=== PATIENT | male | born 1950 | race Caucasian/White ===

== ENCOUNTER 2018-09-11 13:55 | Emergency (ER) | payer MEDICARE, OTHER ==
[~2018-09-11] VITALS: Ht 175.3 cm; Wt 80.7 kg
[~2018-09-11 13:55] MED LIST: CRESTOR20 MG PO; DIOVAN80 MG PO; DOCUSATE SODIU100 MG PO; HYZAAR 100-251 EACH PO; KEFLEX250 MG PO; LEVAQUIN500 MG PO; LISINOPRIL20 MG PO; NAPROXEN500 M1 PO; NEXIUM40 MG PO; PAROXETINE HCL10 MG PO; PROAIR HFA INH8.5 GM; PROTONIX40 MG/ML PO; SUMATRIPTAN SU100 MG PO; TESSALON PERLE100 MG PO; VITAMIN D-32000 UNIT PO
--- OUTSIDE RECORDS SUMMARY | 2018-09-11 13:57 | XMS REPORT ---
Author Author [facility] Address Unknown Phone Unavailable Care Team Providers Care P 3 [employer] I[employer] Technician Name Role Phone Unavailable Unavailable Payers Payer Name Policy Type Policy Number Effective Date Expiration Date Problems This patient has no known problems. Allergies, Adverse Reactions, Alerts Allergy Name Allergy Type Status Severity Reaction(s) Onset Date Inactive Date Treating Clinician Comments No Known Drug Intolerances DA Active U 2009-10-16 00:00:00 Medications This patient has no known medications.
--- NOTE | 2018-09-11 15:05 | NUR ---
TOTAL OUTPUT FROM [facility] 900CC CLEAR YELLOW URINE- PT REPORTS RELIEF FROM SYMPTOMS
[2018-09-11 15:27] LABS: CLARITY,URINE CLEAR (CLEAR); COLOR,URINE YELLOW (YELLOW)
[2018-09-11 15:28] LABS: BILIRUBIN,URINE NEGATIVE (NEGATIVE); KETONES,URINE NEGATIVE (NEGATIVE); LEUKOCYTE ESTERASE ,URINE NEGATIVE (NEGATIVE); NITRITE,URINE NEGATIVE (NEGATIVE); PROTEIN,URINE DIPSTICK NEGATIVE (NEGATIVE); URINE UROBILINOGEN 0.2 mg/dL (0.2 - 1)
[2018-09-11 15:42] LABS: BACTERIA,URINE RARE /HPF; EPITHELIAL CELLS,URINE RARE /LPF; RBC,URINE 0-5 /HPF (0-5); WBC,URINE (MAN) 0-5 /HPF (0-5)
[2018-09-11 17:18] VITALS: BP 167/64
== END 2018-09-11 16:35 | disposition home or self-care (01) ==
LOC: ER 13:55
DX: R33.9 Retention of urine, unspecified (principal); N40.1 Benign prostatic hyperplasia with lower urinary tract symptoms; I10 Essential (primary) hypertension; E78.00 Pure hypercholesterolemia, unspecified; J44.9 Chronic obstructive pulmonary disease, unspecified; Z87.891 Personal history of nicotine dependence
CPT/HCPCS: 51700; 81001; 87086; 99283

== ENCOUNTER 2018-09-13 12:14 | Emergency (ER) | payer MEDICARE, OTHER ==
[~2018-09-13] VITALS: Ht 175.3 cm; Wt 80.7 kg
[2018-09-13 13:05] VITALS: BP 141/77
== END 2018-09-13 13:06 | disposition home or self-care (01) ==
LOC: ER 12:14
DX: Z46.6 Encounter for fitting and adjustment of urinary device (principal); R33.9 Retention of urine, unspecified; I10 Essential (primary) hypertension; J44.9 Chronic obstructive pulmonary disease, unspecified; E78.5 Hyperlipidemia, unspecified; J45.909 Unspecified asthma, uncomplicated; K21.9 Gastro-esophageal reflux disease without esophagitis; F32.9 Major depressive disorder, single episode, unspecified
CPT/HCPCS: 99282

== ENCOUNTER 2020-07-30 16:24 | Emergency (ER) | payer MEDICARE, OTHER ==
[~2020-07-30] VITALS: Ht 175.3 cm; Wt 69.4 kg
[2020-07-30] MEDS ORDERED: SODIUM CHLORIDE 0.9% 1000ML 1,000 ML IV STA ×2 (16:40→17:43)
[2020-07-30] MEDS ORDERED: PANTOPRAZOLE 40 MG 10ML VIAL IV NR (16:45)
[2020-07-30] MEDS ORDERED: ATORVASTATIN CA20 MG PO (16:49)
[2020-07-30] MEDS ORDERED: OMEPRAZOLE40 MG (16:49)
[2020-07-30] MEDS ORDERED: BENICAR20 MG PO (16:50)
[2020-07-30 17:02] LABS: BASOPHILS % 0.2 % (0.0-1.0); EOSINOPHILS # (AUTO) 0.1 (0.0-0.4); EOSINOPHILS % 0.3 % (0.0-6.0); HEMATOCRIT 36.4 % (38.2-49.6); HEMOGLOBIN 12.1 g/dL (14.0-18.0); LYMPHOCYTES # (AUTO) 1.2 (1.0-3.2); LYMPHOCYTES % 6.3 % (18.0-39.1); MEAN CORPUSCULAR HGB CONC 33.2 g/dL (31-35); MEAN CORPUSCULAR VOLUME 93.3 fL (81-99); MONOCYTES # (AUTO) 1.9 (0.2-0.8); MONOCYTES % 9.7 % (4.4-11.3); NEUTROPHILS # (AUTO) 16.1 (2.1-6.9); NEUTROPHILS % 81.9 % (38.7-80.0); PLATELET COUNT 383 x10e3/uL (140-360); RED CELL DISTRIBUTION WIDTH 13.3 % (11.7-14.4)
[2020-07-30] MEDS ORDERED: LIDOCAINE JELLY 2% 10ML URO-JET ONE (17:29)
[2020-07-30] MEDS ORDERED: LIDOCAINE JELLY 2% 10ML URO-JET TOP ONE (17:30)
[2020-07-30 17:33] LABS: INR 0.95; PROTHROMBIN TIME 13.2 seconds (11.9-14.5)
[2020-07-30 17:40] LABS: ALBUMIN 2.9 g/dL (3.5-5.0); ALBUMIN/GLOBULIN RATIO 0.9 (0.8-2.0); ANION GAP 18.8 mmol/L (8-16); CALCIUM 8.3 mg/dL (8.4-10.2); CREATININE, SERUM 1.35 mg/dL (0.72-1.25); MAGNESIUM 1.9 MG/DL (1.3-2.1); POTASSIUM 3.8 mmol/L (3.5-5.1)
[2020-07-30] MEDS ORDERED: PIPERACILLIN/TAZO 4.5 GM 100 ML IV ONE (17:45)
[2020-07-30 17:47] LABS: CREATINE KINASE MB 0.8 ng/mL (0-5.0)
[2020-07-30 17:54] LABS: B-TYPE NATRIURETIC PEPTIDE2 < 10.0 pg/mL (0-100)
[2020-07-30 18:04] LABS: PARTIAL THROMBOPLASTIN TIME 26.5 seconds (23.8-35.5)
[2020-07-30] MEDS ORDERED: SODIUM CHLORIDE 0.9% 50ML 50 ML ONE (18:55)
[2020-07-30] MEDS ORDERED: IOPAMIDOL 370 MG/ML 200 ML INFUS..BTL INJ ONE (18:56)
[2020-07-30 19:08] LABS: CLARITY,URINE CLOUDY (CLEAR); COLOR,URINE AMBER (YELLOW); KETONES,URINE 1+ (NEGATIVE); LEUKOCYTE ESTERASE ,URINE NEGATIVE (NEGATIVE); NITRITE,URINE NEGATIVE (NEGATIVE); PROTEIN,URINE DIPSTICK 2+ (NEGATIVE)
[2020-07-30 19:09] LABS: BILIRUBIN,URINE MODERATE (NEGATIVE); URINE UROBILINOGEN 1 mg/dL (0.2 - 1)
[2020-07-30 19:48] LABS: BACTERIA,URINE MANY /HPF; EPITHELIAL CELLS,URINE FEW /LPF; MUCUS,URINE MODERATE (RARE)
[2020-07-30] MEDS ORDERED: SODIUM CHLORIDE 0.9% 1000ML 1,000 ML IV SCH (21:45)
== END 2020-07-30 22:15 | disposition other institution (70) ==
LOC: ER 17:03
DX: U07.1 COVID-19 (principal); R65.20 Severe sepsis without septic shock; J18.9 Pneumonia, unspecified organism; N39.0 Urinary tract infection, site not specified; E11.65 Type 2 diabetes mellitus with hyperglycemia; I10 Essential (primary) hypertension; E78.5 Hyperlipidemia, unspecified; R94.31 Abnormal electrocardiogram [ECG] [EKG]
CPT/HCPCS: 36415; 51700; 71045; 74177; 80053; 81001; 82550; 82553; 82948; 83605; 83690; 83735; 83880; 84484; 85025; 85610; 85730; 87040; 87086; 87400; 93005; 99284; C9113; J2543; J7030; Q9967; U0002

== ENCOUNTER 2021-02-23 08:54 | Outpatient (RCR) | payer MEDICARE ==
[~2021-02-23 08:54] MED LIST changes: +ATORVASTATIN CA20 MG PO; +BENICAR20 MG PO; +OMEPRAZOLE40 MG
== END 2021-02-26 ==
LOC: PT 08:54
PROVIDERS: ATTEND Physician Assistant

== ENCOUNTER 2021-02-27 07:30 | Emergency (ER) | payer MEDICARE ==
[~2021-02-27] VITALS: Ht 175.3 cm; Wt 81.6 kg
[2021-02-27 08:00] LABS: CLARITY,URINE CLEAR (CLEAR); COLOR,URINE YELLOW (YELLOW); KETONES,URINE NEGATIVE (NEGATIVE); LEUKOCYTE ESTERASE ,URINE NEGATIVE (NEGATIVE); NITRITE,URINE NEGATIVE (NEGATIVE); PROTEIN,URINE DIPSTICK NEGATIVE (NEGATIVE); URINE UROBILINOGEN 0.2 mg/dL (0.2 - 1)
[2021-02-27 08:14] LABS: BACTERIA,URINE RARE /HPF; EPITHELIAL CELLS,URINE RARE /LPF; RBC,URINE 0-5 /HPF (0-5); WBC,URINE (MAN) 0-5 /HPF (0-5)
[2021-02-27 08:16] LABS: RENAL EPITHELIAL CELLS,URINE FEW
[2021-02-27 08:17] LABS: TRANSITIONAL EPI CELLS,URINE RARE
== END 2021-02-27 08:34 | disposition home or self-care (01) ==
LOC: ER 08:01
DX: R33.9 Retention of urine, unspecified (principal); I10 Essential (primary) hypertension; E11.9 Type 2 diabetes mellitus without complications; E78.5 Hyperlipidemia, unspecified; J44.9 Chronic obstructive pulmonary disease, unspecified; K21.9 Gastro-esophageal reflux disease without esophagitis; Z99.81 Dependence on supplemental oxygen
CPT/HCPCS: 51700; 81001; 87086; 99283

== ENCOUNTER 2021-05-31 13:57 | Emergency (ER) | payer MEDICARE ==
[~2021-05-31] VITALS: Ht 175.3 cm; Wt 81.6 kg
[2021-05-31] MEDS ORDERED: SODIUM CHLORIDE 0.9% 1000ML 1,000 ML IV STA (14:01)
[2021-05-31] MEDS ORDERED: FENTANYL CITRATE/PF 100MCG/2 ML INJ IV ONE (14:15)
[2021-05-31] MEDS ORDERED: ONDANSETRON HCL INJ 2MG/ML 2ML 2 MG/ML VIAL IV PRN (14:15)
[2021-05-31 14:24] LABS: BASOPHILS % 0.2 % (0.0-1.0); EOSINOPHILS # (AUTO) 0.1 (0.0-0.4); EOSINOPHILS % 1.2 % (0.0-6.0); HEMATOCRIT 39.2 % (38.2-49.6); LYMPHOCYTES # (AUTO) 1.9 (1.0-3.2); LYMPHOCYTES % 20.7 % (18.0-39.1); MEAN CORPUSCULAR HEMOGLOBIN 30.2 pg (28-32); MEAN CORPUSCULAR HGB CONC 33.2 g/dL (31-35); MEAN CORPUSCULAR VOLUME 91.2 fL (81-99); MONOCYTES # (AUTO) 1.5 (0.2-0.8); MONOCYTES % 16.1 % (4.4-11.3); NEUTROPHILS # (AUTO) 5.7 (2.1-6.9); NEUTROPHILS % 61.1 % (38.7-80.0); PLATELET COUNT 334 x10e3/uL (140-360); RED CELL DISTRIBUTION WIDTH 13.9 % (11.7-14.4)
[2021-05-31 14:30] LABS: CLARITY,URINE SL CLOUDY (CLEAR); COLOR,URINE AMBER (YELLOW); KETONES,URINE TRACE (NEGATIVE); LEUKOCYTE ESTERASE ,URINE NEGATIVE (NEGATIVE); NITRITE,URINE NEGATIVE (NEGATIVE); PROTEIN,URINE DIPSTICK 1+ (NEGATIVE); URINE UROBILINOGEN 0.2 mg/dL (0.2 - 1)
[2021-05-31 14:31] LABS: INR 1.04; PROTHROMBIN TIME 13.8 seconds (11.9-14.5)
[2021-05-31 14:41] LABS: ALBUMIN 3.8 g/dL (3.5-5.0); ALBUMIN/GLOBULIN RATIO 1.1 (0.8-2.0); ANION GAP 15.6 mmol/L (8-16); CALCIUM 8.5 mg/dL (8.4-10.2); CREATININE, SERUM 2.1 mg/dL (0.72-1.25); POTASSIUM 4.6 mmol/L (3.5-5.1)
[2021-05-31 14:42] LABS: AMORPHOUS SEDIMENT,URINE MODERATE (FEW); BACTERIA,URINE MODERATE /HPF; CALCIUM OXALATE CRYSTALS,UR MODERATE (FEW); EPITHELIAL CELLS,URINE FEW /LPF
== END 2021-05-31 17:16 | disposition home or self-care (01) ==
LOC: ER 14:02
DX: R10.11 Right upper quadrant pain (principal); R11.2 Nausea with vomiting, unspecified; R19.7 Diarrhea, unspecified; I10 Essential (primary) hypertension; J44.9 Chronic obstructive pulmonary disease, unspecified; E11.9 Type 2 diabetes mellitus without complications; K21.9 Gastro-esophageal reflux disease without esophagitis; E78.5 Hyperlipidemia, unspecified; I44.7 Left bundle-branch block, unspecified; N40.0 Benign prostatic hyperplasia without lower urinary tract symptoms; Z20.822 Contact with and (suspected) exposure to COVID-19; Z79.899 Other long term (current) drug therapy
CPT/HCPCS: 36415; 76705; 80053; 81001; 83605; 83690; 84484; 85025; 85610; 87040; 93005; 99283; J7030; U0002

== ENCOUNTER 2025-05-07 15:43 | Inpatient (IN) | payer MEDICARE ==
[2025-05-07] VITALS (10 sets, daily range): BP systolic 89–119; BP diastolic 37–51; PULSE 61–70; RESP 6–18; TEMP 97.7–97.9; O2SAT 95–99
[~2025-05-07] VITALS: Ht 175.3 cm; Wt 57.8 kg
[2025-05-07 17:12] LABS: BASOPHILS % 0.1 % (0.0-1.0); EOSINOPHILS % 0.5 % (0.0-6.0); LYMPHOCYTES % 7.5 % (18.0-39.1); MONOCYTES % 6.9 % (4.4-11.3); NEUTROPHILS % 84.0 % (38.7-80.0); RED CELL DISTRIBUTION WIDTH 19.5 % (11.7-14.4)
[2025-05-07 17:17] LABS: INR 1.34
[2025-05-07 17:27] LABS: EST GLOMERULAR FILTRATION RATE 75.0 ML/MIN (>=60)
[2025-05-07] MEDS ORDERED: IOPAMIDOL 370 MG/ML 100 ML INFUS..BTL INJ ONE (17:44)
[2025-05-07 17:54] LABS: LEUKOCYTE ESTERASE ,URINE TRACE (NEGATIVE); PROTEIN,URINE DIPSTICK 1+ (NEGATIVE); URINE UROBILINOGEN 0.2 mg/dL (0.2 - 1)
[2025-05-07 18:00] LABS: EPITHELIAL CELLS,URINE MODERATE /LPF
[2025-05-07] MEDS ORDERED: DIGOXIN INJ 0.25 MG/ML 2 ML AMP IV ONE (18:15)
[2025-05-07] MEDS: HYDROMORPHONE 1MG/1ML INJ IV STA (18:21)
[2025-05-07] MEDS: ONDANSETRON HCL INJ 2MG/ML 2ML 2 MG/ML VIAL IV STA (18:22)
[2025-05-07] MEDS: SODIUM CHLORIDE 0.9% 500ML 500 ML IV ONE (18:22)
[2025-05-07] MEDS ORDERED: PIPERACILLIN/TAZOBACTAM 3.375 GM VIAL ONE (18:46)
[2025-05-07] MEDS ORDERED: ONDANSETRON HCL INJ 2MG/ML 2ML 2 MG/ML VIAL IV PRN (19:30)
[2025-05-08] VITALS (41 sets, daily range): BP systolic 94–144; BP diastolic 37–66; PULSE 60–110; RESP 5–21; TEMP 96.8–99.8; O2SAT 94–100
[2025-05-08 00:52] LABS: % IRON SATURATION 18 % (15-50)
[2025-05-08] MEDS ORDERED: FEROSUL325 MG PO (06:33)
[2025-05-08] MEDS ORDERED: BENZONATATE100 MG PO (06:33)
[2025-05-08] MEDS ORDERED: CETIRIZINE HCL10 MG PO (06:33)
[2025-05-08] MEDS ORDERED: CLOPIDOGREL75 MG PO (06:33)
[2025-05-08] MEDS ORDERED: AMIODARONE HCL200 MG PO (06:33)
[2025-05-08] MEDS ORDERED: FOLIC ACID0.4 MG PO (06:33)
[2025-05-08] MEDS ORDERED: ELIQUIS5 MG PO (06:33)
[2025-05-08] MEDS ORDERED: FUROSEMIDE40 MG PO (06:33)
[2025-05-08] MEDS ORDERED: COMBIVENT RESPIM4 GM IH (06:38)
[2025-05-08] MEDS ORDERED: MAALOX MAXIMUM355 ML PO (06:38)
[2025-05-08] MEDS ORDERED: METOPROLOL TART25 MG PO (06:53)
[2025-05-08] MEDS ORDERED: SENOKOT-S TABL1 EACH PO (06:53)
[2025-05-08] MEDS ORDERED: SERTRALINE HCL50 MG PO (06:53)
[2025-05-08] MEDS ORDERED: VANCOCIN HCL250 MG PO (06:53)
[2025-05-08] MEDS ORDERED: ONDANSETRON ODT8 MG PO (06:53)
[2025-05-08] MEDS ORDERED: OMEPRAZOLE40 MG PO (06:53)
[2025-05-08] MEDS ORDERED: SUCRALFATE1 GM PO (06:53)
[2025-05-08] MEDS ORDERED: FLOMAX0.4 MG PO (06:53)
[2025-05-08 07:40] LABS: BASOPHILS % 0.2 % (0.0-1.0); EOSINOPHILS % 1.5 % (0.0-6.0); LYMPHOCYTES % 11.8 % (18.0-39.1); MONOCYTES % 7.0 % (4.4-11.3); NEUTROPHILS % 78.4 % (38.7-80.0); RED CELL DISTRIBUTION WIDTH 19.6 % (11.7-14.4)
[2025-05-08 08:03] LABS: CHOL/HDL RATIO 2.8 (3.9-4.7); EST GLOMERULAR FILTRATION RATE 91.0 ML/MIN (>=60); LDL CHOLESTEROL 31.0 MG/DL (60-130)
[2025-05-08] MEDS: DEXTROSE 50% SYRINGE 50 ML IV PRN (08:30)
[2025-05-08] MEDS: TAMSULOSIN HCL 0.4 MG CAP PO SCH (09:11)
[2025-05-08] MEDS: APIXABAN 5 MG TABLET PO SCH (09:11)
[2025-05-08] MEDS: PANTOPRAZOLE SOD 40 MG TABEC PO SCH (09:12)
[2025-05-08] MEDS: AMIODARONE HCL 200 MG TAB PO SCH (09:12)
[2025-05-08] MEDS: VANCOMYCIN 250MG/5ML ORAL SOLN PO SCH (09:13)
[2025-05-08] MEDS: POTASSIUM CHLORIDE 20 MEQ TAB CR PO STA (09:13)
[2025-05-08] MEDS: MEROPENEM 1 GM in SODIUM CHLORIDE 0.9% 100 ML IV SCH (09:13)
[2025-05-08] MEDS: HYDROMORPHONE 1MG/1ML INJ IV PRN (10:42)
[2025-05-08 13:11] LABS: EOSINOPHILS % (MANUAL) 2 % (0-7); LYMPHOCYTES % (MANUAL) 11 % (19-48); MONOCYTES % (MANUAL) 5 % (3.4-9.0); NEUTROPHILS % (MANUAL) 82 % (40-74)
[2025-05-08 13:13] LABS: PLATELET ESTIMATE SLIGHTLY INCREASED; PLATELET MORPHOLOGY COMMENT NORMAL; RBC MORPHOLOGY COMMENT NORMAL
[2025-05-08] MEDS: DEXTROSE 5%/0.45% SOD CHL 1,000 ML IV SCH (18:34)
[2025-05-08] MEDS: ATORVASTATIN 20 MG TAB PO SCH (20:58)
[2025-05-09] VITALS (41 sets, daily range): BP systolic 79–141; BP diastolic 37–82; PULSE 56–117; RESP 9–20; TEMP 97.6–98.7; O2SAT 99–100
[2025-05-09] MEDS ORDERED: LIDOCAINE 1% 10 ML MULTIDOSE VIAL IJ ONE (03:52)
[2025-05-09] MEDS ORDERED: BELLADONNA ALK/PHENOBARBITAL 5 ML UDC ONE (03:52)
[2025-05-09] MEDS ORDERED: MAGNESIUM/ALUMINUM/SIMETHICONE 30 ML UDC ONE (03:53)
[2025-05-09] MEDS: SODIUM CHLORIDE 0.9% 250ML 250 ML ONE (04:29)
[2025-05-09] MEDS: DONNATAL/LIDOCAINE/MAALOX 30 ML SUSP PO STA (04:30)
[2025-05-09 05:20] LABS: BASOPHILS % 0.2 % (0.0-1.0); EOSINOPHILS % 1.8 % (0.0-6.0); LYMPHOCYTES % 12.7 % (18.0-39.1); MONOCYTES % 10.1 % (4.4-11.3); NEUTROPHILS % 74.4 % (38.7-80.0); RED CELL DISTRIBUTION WIDTH 19.4 % (11.7-14.4)
[2025-05-09 05:48] LABS: EST GLOMERULAR FILTRATION RATE 98.0 ML/MIN (>=60)
[2025-05-09 06:19] LABS: % IRON SATURATION 17 % (15-50)
[2025-05-09] MEDS: SODIUM CHLORIDE 0.9% 250ML 250 ML IV ONE (09:15)
[2025-05-09] MEDS: VANCOMYCIN HCL 125 MG CAPSULE PO SCH (12:22)
[2025-05-09 15:33] LABS: BODY FLUID APPEARANCE CLOUDY; BODY FLUID COLOR RED; BODY FLUID TYPE PLEURAL
[2025-05-09] MEDS: Vancomycin IV 1 GM in SODIUM CHLORIDE 0.9% 250ML 250 ML IV SCH (15:50)
[2025-05-09 15:58] LABS: WBC,BODY FLUID 514 cells/uL
[2025-05-09 17:11] LABS: LYMPHOCYTES,BODY FLUID 10 %; MONO/MACROPHG,BODY FLUID 39 %; NEUTROPHILS,BODY FLUID 51 %; TOTAL CELLS COUNTED (DIFF) 100
[2025-05-10] VITALS (14 sets, daily range): BP systolic 121–146; BP diastolic 44–62; PULSE 70–98; RESP 10–17; TEMP 98.9–99.5; O2SAT 97–100
[2025-05-10 04:45] LABS: BASOPHILS % 0.2 % (0.0-1.0); EOSINOPHILS % 2.6 % (0.0-6.0); LYMPHOCYTES % 22.6 % (18.0-39.1); MONOCYTES % 11.9 % (4.4-11.3); NEUTROPHILS % 62.1 % (38.7-80.0); RED CELL DISTRIBUTION WIDTH 18.3 % (11.7-14.4)
[2025-05-10 05:13] LABS: EST GLOMERULAR FILTRATION RATE 99.0 ML/MIN (>=60)
[2025-05-10] MEDS: IRON SUCROSE 100 MG in SODIUM CHLORIDE 0.9% 100 ML IV SCH (09:00)
[2025-05-10 14:39] LABS: % IRON SATURATION 24.0 % (15-50)
[2025-05-11] VITALS (9 sets, daily range): BP systolic 118–152; BP diastolic 49–64; PULSE 78–93; RESP 16–20; TEMP 97.9–99.5; O2SAT 96–100
[2025-05-11 06:08] LABS: BASOPHILS % 0.1 % (0.0-1.0); EOSINOPHILS % 3.1 % (0.0-6.0); LYMPHOCYTES % 24.7 % (18.0-39.1); MONOCYTES % 15.0 % (4.4-11.3); NEUTROPHILS % 56.1 % (38.7-80.0); RED CELL DISTRIBUTION WIDTH 18.2 % (11.7-14.4)
[2025-05-11 06:33] LABS: EST GLOMERULAR FILTRATION RATE 100.0 ML/MIN (>=60)
[2025-05-11 18:19] LABS: TOTAL PROTEIN,BODY FLUID 1.9 g/dL
[2025-05-12 01:04] VITALS: BP 132/50; PULSE 80; RESP 20; TEMP 99.1; O2SAT 100
[2025-05-12 06:26] VITALS: PULSE 78; RESP 21; O2SAT 95
[2025-05-12 06:29] VITALS: BP 125/57; PULSE 76; RESP 19; TEMP 98.2; O2SAT 100
[2025-05-12 07:48] VITALS: BP 121/66; PULSE 111; RESP 19; TEMP 98.6; O2SAT 100
[2025-05-12 11:32] VITALS: BP 121/52; PULSE 75; RESP 17; TEMP 97.4; O2SAT 100
== END 2025-05-12 15:00 | disposition home or self-care (01) | DRG 871 ==
LOC: ER 16:14 → MERGE 19:22 → ERHOLD 19:22 → ICU 21:50 → MED/SURG3 05-10 22:07
PROVIDERS: ADMIT Internal Medicine; ATTEND Internal Medicine
PROC: 02HV33Z Insertion of Infusion Device into Superior Vena Cava, Percutaneous Approach (ICD-10-PCS; 2025-05-08)
PROC: 3E03329 Introduction of Other Anti-infective into Peripheral Vein, Percutaneous Approach (ICD-10-PCS; 2025-05-08)
PROC: 0W993ZX Drainage of Right Pleural Cavity, Percutaneous Approach, Diagnostic (ICD-10-PCS; principal; 2025-05-09)
PROC: 30233N1 Transfusion of Nonautologous Red Blood Cells into Peripheral Vein, Percutaneous Approach (ICD-10-PCS; 2025-05-09)
DX: A41.9 Sepsis, unspecified organism (principal); G93.41 Metabolic encephalopathy; N39.0 Urinary tract infection, site not specified; J90 Pleural effusion, not elsewhere classified; I50.32 Chronic diastolic (congestive) heart failure; E44.0 Moderate protein-calorie malnutrition; I42.9 Cardiomyopathy, unspecified; Z68.1 Body mass index [BMI] 19.9 or less, adult; I11.0 Hypertensive heart disease with heart failure; I25.10 Atherosclerotic heart disease of native coronary artery without angina pectoris; E11.9 Type 2 diabetes mellitus without complications; J44.89 Other specified chronic obstructive pulmonary disease; K21.9 Gastro-esophageal reflux disease without esophagitis; E78.00 Pure hypercholesterolemia, unspecified; R19.7 Diarrhea, unspecified; I48.0 Paroxysmal atrial fibrillation; N40.1 Benign prostatic hyperplasia with lower urinary tract symptoms; B95.4 Other streptococcus as the cause of diseases classified elsewhere; K29.70 Gastritis, unspecified, without bleeding; D50.0 Iron deficiency anemia secondary to blood loss (chronic); R53.81 Other malaise; I34.0 Nonrheumatic mitral (valve) insufficiency; G89.29 Other chronic pain; L89.152 Pressure ulcer of sacral region, stage 2; Z95.1 Presence of aortocoronary bypass graft; I25.2 Old myocardial infarction; Z87.891 Personal history of nicotine dependence; Z79.01 Long term (current) use of anticoagulants; Z87.440 Personal history of urinary (tract) infections; Z22.359 Carrier of Enterobacterales, unspecified
CPT/HCPCS: 32555; 36415; 36569; 71045; 71260; 74177; 74470; 80053; 80061; 80202; 81001; 82040; 82550; 82607; 82728; 82746; 82945; 82948; 83540; 83605; 83615; 83690; 83735; 83880; 84157; 84439; 84443; 84466; 84484; 85025; 85045; 85610; 85730; 86850; 86900; 86920; 87040; 87070; 87071; 87086; 87186; 87205; 88112; 88305; 89051; 93005; 93306; 94799; 99252; 99284; C1729; J1171; J1335; J1756; J2185; J2405; J2470; J2543; J3373; J7040; J7050; J7799; P9016; Q9967